=== PATIENT | male | born 1950 | race Caucasian/White ===

== ENCOUNTER → 2024-07-15 13:50 | Outpatient (REF) | payer MEDICARE, OTHER, SELFPAY | LOC: RAD 13:50 | PROVIDERS: ATTENDING PHYSICIAN Internal Medicine Cardiovascular Disease; FAMILY PHYSICIAN Nurse Practitioner Family | DX: I65.23 Occlusion and stenosis of bilateral carotid arteries (principal) | CPT/HCPCS: 93880 ==

== ENCOUNTER 2024-07-24 15:07 | Observation (INO) | payer MEDICARE, OTHER, SELFPAY ==
[2024-07-24] VITALS (15 sets, daily range): BP systolic 117–169; BP diastolic 60–88; PULSE 56–58; BMI 25.7; BMI 35.8
--- NOTE | 2024-07-24 10:02 | ED.GENMED ---
ED Provider Triage
<Bang Waters PA-C - Last Filed: 07/24/24 10:03>
-
Patient seen by provider in Triage?: Seen in Triage
74-year-old male with history of hypertension hyperlipidemia and hypothyroidism presents with worsening cough and shortness of breath. Had recent long flight to [place]. He has some discomfort between his shoulder blades. He has been having sinus
congestion for some time. Outpatient x-rays were done routinely about 3 weeks ago which were negative. He is in no obvious respiratory distress upon triage. He is ambulating with a steady gait.
Given recent flight will order labs EKG troponin BNP as well as PE study of chest. He would warrant further evaluation.
History of Present Illness
<Bang Waters PA-C - Last Filed: 07/24/24 10:03>
General
Chief Complaint: Breathing Problem
Time Seen by Provider: 07/24/24 11:51
<Dallas Mandel PA-C - Last Filed: 07/25/24 11:40>
General
Source: patient
History of Present Illness
History of Present Illness:
74-year-old male with past medical history of hypertension, hyperlipidemia, previous oropharyngeal cancer and kidney cancer presenting to the emergency department at request of primary care provider for evaluation of gradually worsening shortness of
breath and exertional dyspnea that patient reports has been ongoing since mid-to-late May, recently returned from a 15-day trip to [place] but had been having the symptoms prior to the vacation. Patient states that he can normally mow his half
acre lawn without any issues but now even walking up a flight of stairs is causing him to get very short of breath. He notes that over the course of the month and a half with the symptoms he has been near syncopal a few times as well and has had 1
day of vertiginous-like symptoms but this is fully resolved now. Patient denies any fevers, chills, rigors but does endorse a cough productive of a yellowish sputum. Patient completed a course of antibiotics a few weeks ago as well as an
expectorant but states this did not seem to help his symptoms.
Past History
<Bang Waters PA-C - Last Filed: 07/24/24 10:03>
Past History
ED Past Medical History: HTN, Hypercholesterolemia, Other (Tongue cancer) and Other (Polycythemia)
ED Past Surgical History: Orthopedic and Other (Surgery for his tongue cancer)
Social History
Personal:
Living: with family
<Dallas Mandel PA-C - Last Filed: 07/25/24 11:40>
Past History
ED Past Medical History: Cancer
Social History
Tobacco: Former smoker
Alcohol: None
Drug: None
Review of Systems
<Dallas Mandel PA-C - Last Filed: 07/25/24 11:40>
Review of Systems
All Other Systems: ROS reviewed and negative except as documented in HPI and ROS
Phy Exam
<Dallas Mandel PA-C - Last Filed: 07/25/24 11:40>
Physical Exam
Physical Exam:
GENERAL: Alert , in no apparent distress
EYE: conjunctiva clear
NECK: Supple
ENT: o/p clr, mmm.
CARDIAC: Regular rate and rhythm, faint systolic murmur left sternal border
LUNGS: Clear breath sounds bilaterally, no acute respiratory distress, no wheezes/rales/rhonchi
NEUROLOGICAL: Alert and oriented
SKIN: Warm and dry, skin intact.
MUSCULOSKELETAL: well perfused. No edema
PSYCH: Normal and appropriate interaction.
Scores
<Dallas Mandel PA-C - Last Filed: 07/25/24 11:40>
Heart Failure Risk
Heart Failure Risk Score: Not Applicable
Heart Score for Chest Pain Patients
STEMI patient?: Not applicable
Withdrawal Assessment of Alcohol
Withdrawal Assessment Completed?: Not applicable
Course
<Bang Waters PA-C - Last Filed: 07/24/24 10:03>
Orders/Labs/Results
Orders:
Orders
07/24/24 09:59
Electrocardiogram (*1) Urgent
Reason for Study: Shortness of Breath
EKG- Treatment ONCE
07/24/24 10:01
CT Chest Pe Study Urgent
Comment:
Reason For Exam: sob,long plane ride
07/24/24 10:12
Complete Blood Count/With Diff Urgent
Comprehensive Metabolic Panel Urgent
Folate Urgent
Comment: ADD ON
NT-proBNP Urgent
TSH Reflex To Free T4 Urgent
Comment: ADD ON
Troponin I Urgent
Vitamin B12 Urgent
Comment: ADD ON
07/24/24 14:47
Add On- LAB Urgent
Tests Added?: b12, folate,tshwith free t4 reflex
07/24/24 14:54
Meclizine [Antivert] 25 mg PO NOW STA
07/24/24 14:55
Admit/Transfer Patient As Directed
Co-Sign Provider:
Level of Care: Observation services
Assign to:: Telemetry
Physician / Group: sis bee
Diagnosis: acute vertigo, cerrato poss viral pneumonitis
Reason for Telemetry: Arrhythmia
Date to Stop Telemetry: 07/27/24
Time to Stop Telemetry: 11:00
Reason for Hospitalization: acute vertigo, cerrato poss viral pneumonitis
07/24/24 14:56
Code Status As Directed
Resuscitation Status: Full Code
07/24/24 14:59
PRN Pain Medication Management As Directed
May give lesser potent ordered pain med per pt: Yes
preference::
Protocol:: Medication orders for pain may be administered in a
manner that supports deferring to patient preference
when the pt is:
- Requesting an ordered lesser potent pain medication.
Least to most potent pain medications are defined
as: acetaminophen < NSAID < tramadol < opioids
(morphine, oxycodone, hydromorphone).
- Requesting a lesser dose of the same medication IF
ORDERED.
- Requesting a less intrusive route of administration
if both routes are prescribed by the provider (PO <
IV).
07/24/24 Dinner
Regular
At Your Request: Full Participation
Does patient need a safe tray?: No
Prednisone [Deltasone] 40 mg PO DAILY
07/24/24 15:38
COVID-19 Antigen Urgent
Source: Nasal Swab
Influenza A+B Rapid Molecular Urgent
[facility] Source: Nasal Swab
Specimen Description:
07/24/24 19:24
0.9% Sodium Chloride [Nss (Preservative Free)] See Protocol IV PRN PRN
Acetaminophen [Tylenol] 650 mg PO Q4HPRN PRN
FOLic ACID [Folvite] 1 mg 0.9% Sodium Chloride 50 ml [Nss] 50 ml IV DAILYPRN
Ipratropium/Albuterol Sulfate [Duoneb] 3 ml INH R Q4HPRN PRN
Lorazepam [Ativan] 1 mg IV Q1HPRN PRN
Lorazepam [Ativan] 1 mg PO Q2HPRN PRN
Lorazepam [Ativan] 2 mg IV Q1HPRN PRN
Thiamine Injection 200 mg IV Q8
07/24/24 19:24
Case Management Consult Once
Case Management Consult: Other
Comment: Substance abuse counseling
DIETARY CONSULT Routine
Reason for Consult: Nutrition support, possible refeeding guidelines
Activity As Directed
Activity Level: As Tolerated
MSAS SCORE As Directed
MSAS Score 0-4: Repeat MSAS every 2 hours until 0-4 for three consecutive assessments, then every 4 hours x 48
hours.
MSAS Score 5-7: For MILD withdrawl symptoms. Repeat MSAS and RASS every 2 hours
MSAS Score 8-11: For MODERATE withdrawal symptoms. Repeat MSAS and RASS every 1 hour. Consider ICU or IMU
level of care.
MSAS Score > 11: For SEVERE withdrawal symptoms. Repeat MSAS and RASS every 1 hour. Notify provider, consider
ICU level of care.
MSAS Additional Instructions: If no improvement or no decrease in score from severe to moderate within 12
hours, consult psychiatry
MSAS Notify Provider: Notify provider if patient requires more than 10 mg of Lorazepam in eight hour period.
Pneumatic Compression Sleeves As Directed
Type: Knee high
Vital Signs As Directed
Frequency: Per unit guidelines
Pulse Ox/spot Check [RESP] Routine
Quantity: 1
Pt Eval And Treat Routine
Treatment: Vestibular therapy
Activity Level: With Assistance
DX Deep Vein Thrombosis Video Routine
07/24/24 21:46
Alcohol Urgent
B-Hydroxybutyrate Urgent
GGTP Urgent
PTT Urgent
Phosphorus Urgent
Prothrombin Time Urgent
Urinalysis Routine
Date Specimen was Collected: 07/24/24
Time Specimen was Collected: 19:26
Urine Drug Abuse Screen Routine
Date Specimen was Collected: 07/24/24
Time Specimen was Collected: 19:26
07/24/24 22:00
Allopurinol [Zyloprim] 300 mg PO HS
Atorvastatin [Lipitor] 80 mg PO HS
diphenhydramine-acetaminophen [Tylenol PM Extra Strength] 2 tablet PO HS
07/24/24 23:00
Meclizine [Antivert] 25 mg PO Q8H PRN
07/25/24 06:00
Levothyroxine [Synthroid] 75 mcg PO DAILY @ 0600
07/25/24 07:20
Complete Blood Count/With Diff IN AM
Comprehensive Metabolic Panel IN AM
Magnesium IN AM
07/25/24 08:00
FOLic ACID [Folvite] 1 mg PO DAILY
Lisinopril [Zestril] 10 mg PO DAILY
07/27/24 11:00
DC Protocol for Telemetry ONCE
07/27/24 20:00
Thiamine HCl [Vitamin B1] 100 mg PO BID
Abnormal Lab Results
07/24/24
10:12
MCV 95.7 H fL
(80.0-94.0)
MCH 32.5 H pg
(27.0-31.0)
Monocytes % 9.5 H %
(1.7-9.3)
Carbon Dioxide 34 H mmol/L
(22-30)
07/24/24 10:12
07/24/24 10:12
Vital Signs
Initial and Last Documented VS:
Initial Vital Signs
Temp Pulse Resp BP Pulse Ox
98.4 F 50 18 152/85 100
07/24/24 09:54 07/24/24 09:54 07/24/24 09:54 07/24/24 09:54 07/24/24 09:54
Last Documented Vital Signs
Temp Pulse Resp BP Pulse Ox
98.1 F 53 18 139/73 96
07/25/24 11:10 07/25/24 11:10 07/25/24 11:10 07/25/24 11:10 07/25/24 11:10
<Dallas Mandel PA-C - Last Filed: 07/25/24 11:40>
Orders/Labs/Results
Orders:
Orders
07/24/24 09:59
Electrocardiogram (*1) Urgent
Reason for Study: Shortness of Breath
EKG- Treatment ONCE
07/24/24 10:01
CT Chest Pe Study Urgent
Comment:
Reason For Exam: sob,long plane ride
07/24/24 10:12
Complete Blood Count/With Diff Urgent
Comprehensive Metabolic Panel Urgent
Folate Urgent
Comment: ADD ON
NT-proBNP Urgent
TSH Reflex To Free T4 Urgent
Comment: ADD ON
Troponin I Urgent
Vitamin B12 Urgent
Comment: ADD ON
07/24/24 14:47
Add On- LAB Urgent
Tests Added?: b12, folate,tshwith free t4 reflex
07/24/24 14:54
Meclizine [Antivert] 25 mg PO NOW STA
07/24/24 14:55
Admit/Transfer Patient As Directed
Co-Sign Provider:
Level of Care: Observation services
Assign to:: Telemetry
Physician / Group: sis bee
Diagnosis: acute vertigo, cerrato poss viral pneumonitis
Reason for Telemetry: Arrhythmia
Date to Stop Telemetry: 07/27/24
Time to Stop Telemetry: 11:00
Reason for Hospitalization: acute vertigo, cerrato poss viral pneumonitis
07/24/24 14:56
Code Status As Directed
Resuscitation Status: Full Code
07/24/24 14:59
PRN Pain Medication Management As Directed
May give lesser potent ordered pain med per pt: Yes
preference::
Protocol:: Medication orders for pain may be administered in a
manner that supports deferring to patient preference
when the pt is:
- Requesting an ordered lesser potent pain medication.
Least to most potent pain medications are defined
as: acetaminophen < NSAID < tramadol < opioids
(morphine, oxycodone, hydromorphone).
- Requesting a lesser dose of the same medication IF
ORDERED.
- Requesting a less intrusive route of administration
if both routes are prescribed by the provider (PO <
IV).
07/24/24 Dinner
Regular
At Your Request: Full Participation
Does patient need a safe tray?: No
Prednisone [Deltasone] 40 mg PO DAILY
07/24/24 15:38
COVID-19 Antigen Urgent
Source: Nasal Swab
Influenza A+B Rapid Molecular Urgent
[facility] Source: Nasal Swab
Specimen Description:
07/24/24 19:24
0.9% Sodium Chloride [Nss (Preservative Free)] See Protocol IV PRN PRN
Acetaminophen [Tylenol] 650 mg PO Q4HPRN PRN
FOLic ACID [Folvite] 1 mg 0.9% Sodium Chloride 50 ml [Nss] 50 ml IV DAILYPRN
Ipratropium/Albuterol Sulfate [Duoneb] 3 ml INH R Q4HPRN PRN
Lorazepam [Ativan] 1 mg IV Q1HPRN PRN
Lorazepam [Ativan] 1 mg PO Q2HPRN PRN
Lorazepam [Ativan] 2 mg IV Q1HPRN PRN
Thiamine Injection 200 mg IV Q8
07/24/24 19:24
Case Management Consult Once
Case Management Consult: Other
Comment: Substance abuse counseling
DIETARY CONSULT Routine
Reason for Consult: Nutrition support, possible refeeding guidelines
Activity As Directed
Activity Level: As Tolerated
MSAS SCORE As Directed
MSAS Score 0-4: Repeat MSAS every 2 hours until 0-4 for three consecutive assessments, then every 4 hours x 48
hours.
MSAS Score 5-7: For MILD withdrawl symptoms. Repeat MSAS and RASS every 2 hours
MSAS Score 8-11: For MODERATE withdrawal symptoms. Repeat MSAS and RASS every 1 hour. Consider ICU or IMU
level of care.
MSAS Score > 11: For SEVERE withdrawal symptoms. Repeat MSAS and RASS every 1 hour. Notify provider, consider
ICU level of care.
MSAS Additional Instructions: If no improvement or no decrease in score from severe to moderate within 12
hours, consult psychiatry
MSAS Notify Provider: Notify provider if patient requires more than 10 mg of Lorazepam in eight hour period.
Pneumatic Compression Sleeves As Directed
Type: Knee high
Vital Signs As Directed
Frequency: Per unit guidelines
Pulse Ox/spot Check [RESP] Routine
Quantity: 1
Pt Eval And Treat Routine
Treatment: Vestibular therapy
Activity Level: With Assistance
DX Deep Vein Thrombosis Video Routine
07/24/24 21:46
Alcohol Urgent
B-Hydroxybutyrate Urgent
GGTP Urgent
PTT Urgent
Phosphorus Urgent
Prothrombin Time Urgent
Urinalysis Routine
Date Specimen was Collected: 07/24/24
Time Specimen was Collected: 19:26
Urine Drug Abuse Screen Routine
Date Specimen was Collected: 07/24/24
Time Specimen was Collected: 19:26
07/24/24 22:00
Allopurinol [Zyloprim] 300 mg PO HS
Atorvastatin [Lipitor] 80 mg PO HS
diphenhydramine-acetaminophen [Tylenol PM Extra Strength] 2 tablet PO HS
07/24/24 23:00
Meclizine [Antivert] 25 mg PO Q8H PRN
07/25/24 06:00
Levothyroxine [Synthroid] 75 mcg PO DAILY @ 0600
07/25/24 07:20
Complete Blood Count/With Diff IN AM
Comprehensive Metabolic Panel IN AM
Magnesium IN AM
07/25/24 08:00
FOLic ACID [Folvite] 1 mg PO DAILY
Lisinopril [Zestril] 10 mg PO DAILY
07/27/24 11:00
DC Protocol for Telemetry ONCE
07/27/24 20:00
Thiamine HCl [Vitamin B1] 100 mg PO BID
Abnormal Lab Results
07/24/24
10:12
MCV 95.7 H fL
(80.0-94.0)
MCH 32.5 H pg
(27.0-31.0)
Monocytes % 9.5 H %
(1.7-9.3)
Carbon Dioxide 34 H mmol/L
(22-30)
07/24/24 10:12
07/24/24 10:12
Vital Signs
Initial and Last Documented VS:
Initial Vital Signs
Temp Pulse Resp BP Pulse Ox
98.4 F 50 18 152/85 100
07/24/24 09:54 07/24/24 09:54 07/24/24 09:54 07/24/24 09:54 07/24/24 09:54
Last Documented Vital Signs
Temp Pulse Resp BP Pulse Ox
98.1 F 53 18 139/73 96
07/25/24 11:10 07/25/24 11:10 07/25/24 11:10 07/25/24 11:10 07/25/24 11:10
<Dallas Mandel PA-C - Last Filed: 07/25/24 11:40>
MDM/Problems Addressed
Differential Diagnosis Includes:
Pneumonia or other infectious etiology thought to be less likely given the chronicity of patient's symptoms, CHF, CAD, valvular dysfunction
MDM/Problems Addressed:
74-year-old male presenting the emergency department at request of primary care provider for evaluation of gradually worsening exertional dyspnea over the last month and a half, unchanged today but primary care provider was concerned for possible PE
given recent travel abroad. Patient was having symptoms prior to his trip thus making PE a little less likely but patient does also have risk factor with cancer history. Labs and CTA imaging ordered. Disposition pending
<Dallas Mandel PA-C - Last Filed: 07/25/24 11:40>
*Radiology
Radiology exam reviewed: radiology read reviewed
*Pulse Oximetry
Patient hypoxic: no
*EKG
Interpreted by ED Provider?: Yes
Heart Rate: 53
Rate: bradycardiac
Rhythm: sinus
[place]: normal axis
Ischemia: no ischemia
*Corrective And Manual Arts Therapist Interpretation
Rate: normal
Rhythm: sinus
*Critical Care Note
Total Time (30-74mins, 75-104mins- exclusive of procedures): Not Applicable
Data Reviewed
Review of Other/Old Records Reveals: Labs and Records
<Dallas Mandel PA-C - Last Filed: 07/25/24 11:40>
Comment
Comment:
Patient had a stress echocardiogram in 2020 which was inconclusive. Otherwise most recent echocardiogram was in 2018 and did not show any acute abnormalities
Patient Management
Discussion with other providers: Hospitalist and PCP
Escalation/DeEscalation of care consider admission/obs:
Hospitalist team accepts for continued evaluation and treatment of worsening exertional dyspnea. Primary care provider was also updated on findings
ED Attending Note
<Bang Waters PA-C - Last Filed: 07/24/24 10:03>
-
Portions of this chart may have been created with voice recognition software.� Occasional wrong word or��sound alike� substitutions may have occurred due to the inherent limitations of voice recognition software.
Discharge Plan
Departure
Patient Disposition: Admit
Date of Disposition: 07/24/24
Time of Disposition: 13:35
Presentation/result/management discussed w/ accepting MD/DO: Hospitalist
Discharge Problem:
Exertional dyspnea, Near syncope
Interventions
Interventions:
*Risk Screen - Suicide Last Done: 07/24/24 09:58
*General Assessment Last Done: 07/24/24 09:58
*Neglect/Abuse Screening Last Done: 07/24/24 09:58
*ED COVID-19 Vaccine History Last Done: 07/24/24 22:36
*Nursing Disposition Last Done: 07/24/24 22:39
ED- Cardiac Assessment Last Done: 07/24/24 11:54
ED- Pulmonary Assessment Last Done: 07/24/24 11:54
Discharge Date and Time
Discharge Date/Time: 07/24/24 22:39
[2024-07-24 10:53] LABS: % Basophils 0.8 % (0-2); % Eosinophils 3.5 % (0-6); % Immature Granulocytes 0.3 % (0-0.5); % Lymphocytes 26.4 % (20.5-51.1); % Monocytes 9.5 % (1.7-9.3); % Neutrophils 59.5 % (42.2-75.2); Absolute Basophils 0.1 10^3/uL (0-0.2); Absolute Eosinophils 0.2 10^3/uL (0-0.7); Absolute Lymphocytes 1.7 10^3/uL (1.2-3.4); Absolute Monocytes 0.6 10^3/uL (0.1-0.6); Absolute Neutrophils 3.9 10^3/uL (1.4-6.5); Hematocrit 48.9 % (39.0-52.0); Hemoglobin 16.6 g/dL (13.0-18.0); Mean Corp Hgb Conc. 33.9 g/dL (33.0-37.0); Mean Corpuscular Hgb 32.5 pg (27.0-31.0); Mean Corpuscular Volume 95.7 fL (80.0-94.0); Mean Platelet Volume 9.4 fL (7.4-10.4); Nucleated Red Blood Cells % 0 % (-); Platelet Count 156 10^3/uL (130-400); Red Blood Cell Count 5.11 10^6/uL (4.70-6.10); Red Cell Dist. Width 13.7 % (11.5-14.5); White Blood Cell Count 6.5 10^3/uL (4.8-10.8)
[2024-07-24 10:56] LABS: Blood Urea Nitrogen 14 mg/dl (9-20); Glucose 92 mg/dl (70-99); eGFR > 60.00
[2024-07-24 10:57] LABS: ALT (SGPT) 21 U/L (0-50); AST (SGOT) 25 U/L (17-59); Albumin 4.4 g/dl (3.5-5.0); Alkaline Phosphatase 53 U/L (38-126); Calcium 9.9 mg/dl (8.4-10.2); Carbon Dioxide 34 mmol/L (22-30); Chloride 100 mmol/L (98-107); Potassium 4.3 mmol/L (3.5-5.1); Sodium 142 mmol/L (135-145); Total Bilirubin 1.3 mg/dl (0.2-1.3); Total Protein 6.9 g/dl (6.3-8.2)
[2024-07-24 11:03] LABS: NT-proBNP 238 pg/ml; Troponin I < 0.012 ng/ml
--- NOTE | 2024-07-24 13:43 | HPS.HSE ---
Family Physician
-
Family Physician: LIDIA Patiño
Chief Complaint
-
Cough, dizziness, dyspnea on exertion
History of Present Illness
74-year-old male who reports a chronic clear cough only in the a.m. starting May 21. He reports he went on vacation from June 04 to the flew from [place] to [place] 9 hours then to [facility] for half hours then a ferry to [place]. He flew
home on June 19 and states during his vacation he had tons of nasal congestion blowing his nose, coughing the entire time. He was seen by his PCP and placed on 5-day course of Augmentin. He states approximately 1 week ago while here for an
outpatient carotid ultrasound he walked out and felt like he was going to pass out. He states when standing he felt like it was being pulled to the left side and felt like a spinning sensation. He reports he was able to make it to his car then the
emergency room waiting area where he sat down until he felt better. He then decided to go home instead of get checked out. He reports over this past week every time he goes from lying to sitting or standing position he feels a sense of
overwhelming lightheadedness with possibly vertigo sensation. He also has some dizziness with different head positions. He reports his cough turned into difficulty taking a deep breath. On my exam he does have poor inspiratory effort. He reports
night sweats several times over the past month and no weight loss. He denies any fever, chills, headache, chest pain, palpitations, abdominal pain, nausea, vomiting, diarrhea, urinary symptoms. He has past medical history of Alcohol abuse drinks 6
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
nephrectomy September 2013 at [facility], Pancreatic cysts on 2019 MRI
Medical History
Past Medical History
Past Medical History: Reports Other
Additional Past Medical History:
Alcohol abuse drinks 6 beers daily or 4 glasses of wine daily
HTN�benign
HLD
Hx hypothyroidism
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
Hx History of renal cell carcinoma with right partial nephrectomy September 2013 at [facility]
hx Pancreatic cysts on 2019 MRI
Hx tongue malignancy
Hx polycythemia vera
Hx gout
Hx SVT
Past Surgical History: Reports Other
Additional Past Surgical History:
Head and neck resection due to tongue malignancy August 2011
Right partial nephrectomy September 2013 secondary to renal carcinoma
Hernia repair July 2015
Left rotator cuff repair
Social History
Tobacco: Non-smoker
Alcohol: Daily (6 beers daily or 4 glasses of wine)
Personal:
Living: With Family
Employment: Retired
Family History
Family History: Other (Father CAD/CABG x 4 vessel colon CA age 82, mother pancreatic cancer age 79)
Allergies / Home Medications
Allergies reflects when Allergies were last updated in [employer].
Home Medications with original date entered in [employer]
Allergy/Medication List:
Allergies
Allergy/AdvReac Type Severity Reaction Status Date / Time
Sulfa (Sulfonamide Allergy Hives Verified 07/24/24 09:58
Antibiotics)
Home Medications
atorvastatin 80 mg tablet 80 mg PO HS 08/07/14
lisinopril 10 mg tablet 10 mg PO DAILY 09/04/20
allopurinol 300 mg tablet 300 mg PO HS 07/24/24
diphenhydramine 25 mg-acetaminophen 500 mg tablet (Tylenol PM Extra Strength) 2 tab PO HS 07/24/24
levothyroxine 75 mcg tablet 75 mcg PO DAILY 07/24/24
lorazepam 0.5 mg tablet 0.5 mg PO DAILYPRN PRN before MRI/flight 07/24/24
Review of Systems
-
Constitutional: Reports Night Sweats (2-3 episodes in the last month); Denies Fever or Fatigue
EENT: Denies Sore Throat
Respiratory: Reports Cough (Clear in color in a.m.) and Trouble Breathing (Poor inspiratory effort and MORFIN x 1 week)
Cardiac: Denies Chest Pain, Diaphoresis, Palpitations or Syncope
Abdomen/GI: Denies Abdominal Pain, Nausea, Vomiting, Diarrhea, Constipated, Bloody Stools or Black Stools
: Denies Dysuria, Frequency, Flank Pain, Incontinence or Urgency
Musculoskeletal: Denies Joint Pain or Edema
Skin: Denies Itching or Rash
Neurological: Reports Dizzy (With position changes); Denies Headache or Weakness
Endocrine: Reports No Symptoms
Hematologic/Lymphatic: Reports No Symptoms
Psych: Reports Calm
Physical Exam
Vital Signs
Vital Signs
Temp Pulse Resp BP Pulse Ox
98.4 F 51 12 159/82 100
07/24/24 09:54 07/24/24 11:30 07/24/24 11:30 07/24/24 11:18 07/24/24 09:54
Physical Exam
General: Comfortable and Conversant; No Pain, Fever or Chills
HEENT: NormoCephalic, Anicteric, Moist mucous membranes, PERRLA, [place] Conjunctivae, No Ptosis and Other (Dizziness reported with changes in position of head and with lying to sitting position)
Respiratory: Other (Poor inspiratory effort); No Wheezes, Rales or Rhonchi
Cardiac: S1/S2 and Bradycardia (Sinus); No Murmur, Rub, Gallop or Peripheral Edema
Breast: Deferred by me
GI: Soft, Non Tender, Non Distended, Normal Bowel Sounds and No Hepatosplenomegaly
Rectal: Deferred by Provider
Genito-urinary: Deferred by me
Musculoskeletal: No Clubbing, No Cyanosis and No Edema
Skin: Warm and Dry; No Rash or Jaundice
Neuro: AO x 3, No Motor Deficits, Nonfocal/grossly intact, Cranial Nerves Intact and No Sensory Deficits; No Slurred Speech, Facial Droop or Tremors
Psych: Calm
Laboratory Results
-
07/24/24 10:12
07/24/24 10:12
Laboratory Results
Total Bilirubin 1.3 mg/dl (0.2-1.3) 07/24/24 10:12
AST 25 U/L (17-59) 07/24/24 10:12
ALT 21 U/L (0-50) 07/24/24 10:12
Alkaline Phosphatase 53 U/L (38-126) 07/24/24 10:12
Troponin I < 0.012 ng/ml 07/24/24 10:12
Data Reviewed
-
CT Scan: Report Reviewed by me
Lab Data: Labs Reviewed by me
Impression/Plan
-
Impression/plan:
Observation telemetry
#Acute Vertigo preceded by sinus infection/URI
-Treated for URI with sinus infection June 21 completed 5-day course of Augmentin
-Consult PT for Vestibular therapy
-Prednisone 40 mg X 5 days
-Meclizine 25 mg 3 times daily as needed
#Dyspnea on exertion possibly secondary to Viral Pneumonitis
-No current fever would hold on antibiotics
-Check influenza, COVID swab
-Will give course of prednisone 40 mg x 5 days
-DuoNebs as needed
CT PE study: 1. No CTA evidence for an acute pulmonary thromboembolism.
2. Bilateral lower lobe subsegmental atelectasis with groundglass opacities that are favored to be hypoventilatory, although a mild pneumonitis could also be considered in the appropriate clinical setting.
3. 8 mm solid pulmonary nodule in the left lower lobe. Recommend a follow-up chest CT in 6-12 months per Fleischner Society guidelines.
# Incidental 8 mm solid pulmonary nodule in the left lower lobe
-Radiology recommends a follow-up chest CT in 6-12 months
#Alcohol abuse
#Alcohol abuse drinks 6 beers daily or 4 glasses of wine daily
Last drink 3 days ago 07/21/2024
-Will check B12, folate
-MSAs screen with protocol
#HTN�benign
-Continue lisinopril 10 mg daily
Lying 150/78, HR 58
Sitting 150/88 HR 56 symptomatic with dizziness
Standing 138/88 heart rate 58
#HLD
-Continue atorvastatin 80 mg every afternoon
#Hx Hypothyroidism
-Continue levothyroxine 75 mcg daily
#Hx History of renal cell carcinoma with right partial nephrectomy September 2013 at [facility]
Creat 0.9
#Hx tongue malignancy
Head and neck resection due to tongue malignancy August 2011
#Hx polycythemia vera
RBC 5.11 within normal limits
#Hx SVT
Stress echo 05/20/2021: EF 67% good exercise tolerance 9 minutes no CP or ischemic changes
2D echo 02/05/2018: EF 55-60% no valvular disorders no wall abnormality
#HX Pancreatic cysts on 2019 MRI
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
#Hx gout
-Continue allopurinol 300 mg at bedtime
DVT prophylaxis
SCDs
Full code
--- NOTE | 2024-07-24 14:57 | W.PN.UPDATE ---
Addendum entered and electronically signed by Viola Correa MD 07/24/24 22:02:
Pulmonary also consulted.
Addendum entered and electronically signed by Viola Correa MD 07/24/24 17:02:
Patient in sinus bradycardia heart rate as low as 30s with sinus pauses. Concerned that this could be the source of his dizziness/vertigo. Cardiology to be consulted.
Addendum entered and electronically signed by Viola Correa MD 07/24/24 14:58:
Patient with significant alcohol use. Alcohol withdrawal protocol, check TSH and B12.
Original Note:
Update Note
Progress Note Update
This is an addendum to the H&P written by Constance Ambriz on 07/24/2024. Patient seen and examined independently with ADOPTION COUNSELOR.
74-year-old male past medical history of alcohol use, hypertension, hyperlipidemia, hypothyroidism, tongue cancer, polycythemia vera, gout, SVT, presenting for worsening cough, dyspnea on exertion, sinus congestion with discomfort between shoulder
blades after recent long flight to [place]. Given 5 days of Augmentin for URI on June 21 with persistent symptoms since then.
He has been having lightheadedness upon standing feeling a pulling to the left. Occasional night sweats.
CT PE showed bilateral lower lobe segment segmental atelectasis groundglass opacities are favored to be hypoventilatory however mild pneumonitis could also be considered. Also 8 mm solid pulmonary nodule.
On examination he has bilateral decreased air entry, occasion crackle. Presentation not consistent with bacterial pneumonia. May have interstitial pneumonitis. Start prednisone 40 mg, DuoNebs as needed. Check COVID and influenza.
Orthostatic vital signs negative. Dizziness possibly secondary to vestibular neuritis. As needed meclizine, PT for vestibular therapy, steroids may help with this as well.
[2024-07-24] MEDS: DELTASONE 40 MG PO (15:04)
[2024-07-24] MEDS: ANTIVERT 25 MG PO (15:04)
[2024-07-24 15:55] LABS: TSH Reflex To Free T4 3.38 uIU/ml (0.47-4.68)
[2024-07-24 16:19] LABS: COVID-19 Antigen Negative (Negative)
--- NOTE | 2024-07-24 17:41 | CON.CAR ---
Addendum entered and electronically signed by Nik Sloan MD 07/24/24 18:04:
I saw and examined the patient.
The DIRECTOR RECORDS MANAGEMENT's note was reviewed and I agree with the note.
Comment: Mr. Stout has a long history of asymptomatic sinus bradycardia. He comes to the hospital with weeks of cough and dyspnea on exertion. He tells me that prior chest imaging showed some lung disease at the bases and he saw disintegrator operator
at that time. In April 2021 he had a treadmill stress test. He exercised well to 10 METS with heart rate reaching only 67% of maximum predicted heart rate. While he had chronotropic incompetence it did not affect his exercise capacity and a
pacemaker was not needed then.
If his respiratory status allows I would like to repeat a treadmill stress test to look at his heart rate response to exercise in combination with his exercise tolerance and compared to the study from April 2021.
If you were not having any acute respiratory process now it would be possible to believe that he is now symptomatic from chronotropic incompetence and would benefit from pacemaker therapy for sinus node dysfunction.
We have seen sinus node dysfunction in the emergency room with resting sinus bradycardia, very short sinus pauses not more than 2 seconds sinus bradycardia into the 30s with junctional escape rhythm. None of these rhythms have been symptomatic in
the emergency room.
I do not believe his orthostatic lightheadedness over that single episode where things seem tilted will improve with pacemaker therapy.
Will update an echocardiogram. If his respiratory status permits and he is felt to be in good enough shape we will try obtaining a treadmill stress test tomorrow.
Pacing for chronotropic incompetence is an elective process and certainly could be deferred until his acute respiratory status is further evaluated and treated.
-
-
Original Note:
Consultation
Consultation Request
Date/Time Consultation Requested: 07/24/241699
Date/Time Consultation Performed: 07/24/241709
Requesting Provider: Constance Ambriz NP
Performing Provider: Kristine MURILLO for
Reason for Consultation: Bradycardia
Medical History
-
Chief Complaint: SOB
History of Present Illness:
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
resection who is here for evaluation of SOB. Briefly, he has been feeling off for about 8 weeks after returning from a trip. He started with feeling like he had a cold. Then, he was on antibiotics as an outpatient to help with a cough and
congestion. Those symptoms improved. However, he continues to have MORFIN. There is no CP. He has back pain, which is worse with certain positions and with deep breath- he wonders if it is related to all the coughing he did (musculoskeletal cause). He
has also had episodes of light-headedness, mostly with position change. However, last week, he laid down for a test for about 1/2 hour, then walked to his car and felt that he was walking sideways and felt light-headed like he may pass out. He did
not pass out. He has been fatigued. He is in no distress at the time of my assessment. We are consulted for bradycardia. I see HR's as low as 40 BPM and there is some junctional bradycardia. He is not dizzy in bed when these are happening.
Past Medical History
Past Medical History: CAD, Cancer, HTN, Hypercholesterolemia and Hypothyroidism
Social History
Personal:
Living: With Family
Family History
Family History: Reviewed & Not Pertinent
Allergies / Home Medications
Allergy/AdvReac Type Severity Reaction Status Date / Time
Sulfa (Sulfonamide Allergy Hives Verified 07/24/24 09:58
Antibiotics)
�Medication �Instructions �Recorded �Confirmed �Type
atorvastatin 80 mg tablet 80 mg PO HS 08/07/14 07/24/24 History
lisinopril 10 mg tablet 10 mg PO DAILY 09/04/20 07/24/24 History
allopurinol 300 mg tablet 300 mg PO HS 07/24/24 07/24/24 History
diphenhydramine 25 2 tab PO HS 07/24/24 07/24/24 History
mg-acetaminophen 500 mg tablet
(Tylenol PM Extra Strength)
levothyroxine 75 mcg tablet 75 mcg PO DAILY 07/24/24 07/24/24 History
lorazepam 0.5 mg tablet 0.5 mg PO DAILYPRN PRN before 07/24/24 07/24/24 History
MRI/flight
Review of Systems
-
History Source: Patient
All other systems: Negative unless noted
Constitutional: Fatigue
Respiratory: Trouble Breathing
Neurological: Dizzy
Physical Exam
Vital Signs
Temp Pulse Resp BP Pulse Ox
98.4 F 43 21 117/71 100
07/24/24 09:54 07/24/24 17:15 07/24/24 17:15 07/24/24 17:00 07/24/24 09:54
Lab Results
07/24/24 10:12
07/24/24 10:12
Troponin I < 0.012 ng/ml 07/24/24 10:12
Yxc-X-Djjrrsszotm Pept 238 pg/ml 07/24/24 10:12
Physical Exam
General: Well Developed, Well Nourished and No Apparent Distress
HEENT: Normocephalic and Anicteric
Respiratory: Clear and Non Labored Respirations
Cardiac: Regular Rhythm
Musculoskeletal: No Edema
Skin: Warm and Dry
Neuro: AO x 3
Psych: Calm
Impression / Plan
-
MORFIN:
-respiratory w/u per primary team. Steroids initiated.
-we will evaluate for cardiac cause with echo and treadmill stress test (eval for chronotropic incompetence)- see below. Treadmill stress test will be tomorrow pending reassessment in AM to make sure he is ready to do so.
Bradycardia:
-some periods of junctional bradycardia, but no advanced HB or long pauses seen
-follow telemetry
-known history of SB
-eval as above
-TSH is WNL
Light-headed feeling:
-monitor orthos, tele, echo. Eval for non-cardiac cause as well.
HTN:
-continue ACEI
-follow
Data Reviewed
-
EKG: Tracing Personally Visualized and interpreted (SB at [address]
CT Scan: Report Reviewed by me (no PE)
Medical Tests (Nuc Med, Echo etc): Report Reviewed by me (echo 01/26/2018: Normal left ventricular size and systolic function. Estimated ejection fraction is 55-60%. Aortic sclerosis without stenosis.)
Labs: Labs Reviewed by me
[2024-07-24 17:55] LABS: Folate 10.4 ng/ml (2.76-20); Vitamin B12 281 pg/ml (239-931)
[2024-07-24] MEDS: THIAMINE INJECTION 200 MG IV (20:04)
[2024-07-24 22:03] LABS: Urine Albumin Negative (Neg - Trace); Urine Bilirubin Negative (Negative); Urine Character Clear (Clear); Urine Color Yellow; Urine Glucose Negative (Negative); Urine Ketone Negative (Negative); Urine Leukocyte Negative (Negative); Urine Nitrite Negative (Negative); Urine Occult Blood Negative (Negative); Urine Urobilinogen Negative (Neg - 1+)
[2024-07-24 22:05] LABS: INR 0.91; PT 12.7 Sec (11.4-14.6)
[2024-07-24 22:06] LABS: APTT 27.9 Sec (23.4-35.0)
[2024-07-24 22:14] LABS: Amphetamines Negative (Negative); Barbiturates Negative (Negative); Benzodiazepines Negative (Negative)
[2024-07-24 22:15] LABS: Buprenorphine Negative (Negative); Cocaine Negative (Negative); Marijuana Negative (Negative); Methadone Negative (Negative); Methamphetamines Negative (Negative); Opiates Negative (Negative); Phencyclidine Negative (Negative); Tricyclic Antidepressants Negative (Negative)
[2024-07-24 22:24] LABS: GGTP 11 U/L (15-73); Phosphorus 2.9 mg/dl (2.5-4.5)
[2024-07-24 22:30] LABS: Alcohol None Detected
[2024-07-24 22:31] LABS: B-Hydroxybutyrate 0.06 mmol/L (0.02-0.27)
[2024-07-24] MEDS: LIPITOR 80 MG PO (23:00)
[2024-07-24] MEDS: ZYLOPRIM 300 MG PO (23:00)
[2024-07-24] MEDS: BENADRYL 50 MG PO (23:02)
[2024-07-24] MEDS: THIAMINE INJECTION IV (23:05)
--- NOTE | 2024-07-25 01:27 | PTCARENOTE ---
Rec'd pt. from ED into room 402-2 AAOx3, VSS, sinus karrie in the 50's Able to ambulate with steady gait, pt. encouraged to ring for assist due to previous vertigo symptoms (none so far since admit). Pt. very pleasant, MSAS score 0. Currently
sleeping.
[2024-07-25 03:41] VITALS: BP 131/85
[2024-07-25] MEDS: SYNTHROID 75 MCG PO (06:08)
[2024-07-25 07:25] VITALS: BP 145/79
--- NOTE | 2024-07-25 08:21 | W.PN.CD ---
Addendum entered and electronically signed by Neal Beal MD 07/25/24 15:21:
74 yo male with PMH of sinus bradycardia admitted with MORFIN, cough. Being treated for URI/bronchitis. We are consulted to evaluate if his sinus bradycardia is contributing to his MORFIN. There is no CP. Exam with karrie, regular rhythm, II/ systolic
murmur at RUSB. Echo: EF 60-65%, aortic sclerosis.
ETT today: he achieved 8 METS and max HR 99bpm. He is happy with how he felt on treadmill. While his peak HR was lower than expected, he had good exercise capacity. I do not see an indication for a PPM. He will follow up with us in the
outpatient setting.
Agree with continued treatment of his URI.
Original Note:
Today's Communication / Plan
-
Echo and stress today (see details below)
Follow tele
monitor orthos
Impression / Plan
-
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
adenocarcinoma treated with resection who is here for evaluation of MORFIN and cough. He hasn't felt right for about 8 weeks. There is fatigue. He has also had some light-headed episodes, some of which sound orthostatic with position change, and one
episode where he felt like he was walking sideways. We were consulted for bradycardia.
MORFIN:
-respiratory w/u per primary team. Steroids initiated. Per report, patient had prior chest imaging showed some lung disease at the bases and he saw dough cutting machine operator at that time. Pulmonary is consulted.
-we will evaluate for cardiac cause with echo and treadmill stress test (eval for chronotropic incompetence). I assessed patient this AM. His lungs are clear. Sats normal on RA. Tele stable, BP stable. He denies any dizziness. I feel that he is
safe for treadmill stress test today and he agrees and would like to proceed. I spoke with both he and the flight hostess regarding reasons to stop procedure.
Bradycardia:
-On monitor in ER he had evidence for sinus node dysfunction with resting sinus bradycardia and very short sinus pauses not more than 2 seconds sinus bradycardia into the 30s with junctional escape rhythm. None of these rhythms have been
symptomatic in the emergency room. Tele overnight unremarkable- SB continues to be seen, but no advanced HB or long pauses. Continue to follow telemetry.
-Treadmill stress test today to look at his heart rate response to exercise in combination with his exercise tolerance and compared to the study from April 2021. In April 2021 he had a treadmill stress test. He exercised well to 10 METS
with heart rate reaching only 67% of maximum predicted heart rate. While he had chronotropic incompetence it did not affect his exercise capacity and a pacemaker was not needed then.
-If he were not having any acute respiratory process now it would be possible to believe that he is now symptomatic from chronotropic incompetence and would benefit from pacemaker therapy for sinus node dysfunction.
Light-headed feeling:
-monitor orthos, tele, echo. Eval for non-cardiac cause as well.
HTN:
-continue ACEI
-follow
Physical Exam
Vital Signs/Labs
Vital Signs
Temp Pulse Resp BP Pulse Ox
97.6 F 53 20 131/85 95
07/25/24 03:41 07/25/24 03:41 07/25/24 03:41 07/25/24 03:41 07/25/24 03:41
07/24/24 07/25/24 07/26/24
06:59 06:59 06:59
Actual Weight 91.626 kg
PT 12.7 Sec (11.4-14.6) 07/24/24 21:46
INR 0.91 07/24/24 21:46
APTT 27.9 Sec (23.4-35.0) 07/24/24 21:46
07/24/24
10:12
Bgr-C-Aknvurvovxv Pept 238
LAB Results
07/24/24
10:12
Troponin I < 0.012
Physical Exam
Constitutional: No acute distress
EENT: Anicteric
Cardiovascular: Rhythm & rate is regular
Respiratory: Respiratory effort normal and Lungs clear to auscul.
Neuro/Psych: AO x 3
Data Reviewed
-
Date of Service: July 25, 2024
EKG: Other (SB)
[2024-07-25 08:49] LABS: % Basophils 0.2 % (0-2); % Eosinophils 0.5 % (0-6); % Immature Granulocytes 0.5 % (0-0.5); % Lymphocytes 22.2 % (20.5-51.1); % Monocytes 9.3 % (1.7-9.3); % Neutrophils 67.3 % (42.2-75.2); Absolute Lymphocytes 1.8 10^3/uL (1.2-3.4); Absolute Monocytes 0.8 10^3/uL (0.1-0.6); Absolute Neutrophils 5.5 10^3/uL (1.4-6.5); Hematocrit 46.6 % (39.0-52.0); Hemoglobin 15.6 g/dL (13.0-18.0); Mean Corp Hgb Conc. 33.5 g/dL (33.0-37.0); Mean Corpuscular Hgb 32.2 pg (27.0-31.0); Mean Corpuscular Volume 96.3 fL (80.0-94.0); Mean Platelet Volume 10.1 fL (7.4-10.4); Nucleated Red Blood Cells % 0 % (-); Platelet Count 152 10^3/uL (130-400); Red Blood Cell Count 4.84 10^6/uL (4.70-6.10); Red Cell Dist. Width 13.4 % (11.5-14.5); White Blood Cell Count 8.2 10^3/uL (4.8-10.8)
--- NOTE | 2024-07-25 09:21 | CON.PUL ---
Consultation
Consultation Request
Date/Time Consultation Requested: 07/25/2024-9 AM
Date/Time Consultation Performed: 07/25/2024-9:30 AM
Requesting Provider: Hospitalist
Performing Provider: Dr. Abraham
Reason for Consultation: Shortness of breath
Medical History
-
Chief Complaint: Shortness of breath
History of Present Illness:
74-year-old male with history of hypertension, hyperlipidemia, hypothyroidism, polycythemia vera, alcohol use disorder patient developed upper respiratory tract infection symptoms recently treated with antibiotics and presented with acute vertigo
and increased dyspnea-pulmonary was consulted for shortness of breath 07/25/2024. The patient states that his shortness of breath and respiratory symptoms have been going on for weeks treating the outpatient setting. He is placed on some steroids
and he feels actually much better. Continues to occasional yellow mucus production. Denies any chest pain, chest tightness or wheezing. He is not on any inhalers. He quit smoking 55 years ago. He is never told he had lung disease. Does not
complain of acid reflux, abdominal pain or weakness.
Past Medical History
Past Medical History: None (Hypertension. Hyperlipidemia. Hypothyroid. Alcohol use disorder. Renal cell carcinoma status post partial nephrectomy 2013-[facility]. Pancreatic cyst 2019. Tongue malignancy. Polycythemia vera. Gout. SVT. Left rotator
cuff repair. Hernia repair 2015.)
Social History
Tobacco: Former Smoker ( less than [id number] the day he left the service 55 years ago)
Alcohol: Daily (6 beers or 4 glasses of wine daily)
Drug: None
Personal:
Living: With Family
Occupational Exposures: No known asbestos exposure
Environmental Exposures: No known tuberculosis exposure
Family History
Family History: Reviewed & Not Pertinent and Other (Father-CAD and colon cancer. Mother pancreatic cancer.)
Allergies / Home Medications
Allergies
Allergy/AdvReac Type Severity Reaction Status Date / Time
Sulfa (Sulfonamide Allergy Hives Verified 07/24/24 09:58
Antibiotics)
Home Medications
�Medication �Instructions �Recorded �Confirmed �Last Taken �Type
atorvastatin 80 mg tablet 80 mg PO HS 08/07/14 07/24/24 07/23/24 History
lisinopril 10 mg tablet 10 mg PO DAILY 09/04/20 07/24/24 07/24/24 History
allopurinol 300 mg tablet 300 mg PO HS 07/24/24 07/24/24 07/23/24 History
diphenhydramine 25 2 tab PO HS 07/24/24 07/24/24 07/23/24 History
mg-acetaminophen 500 mg tablet
(Tylenol PM Extra Strength)
levothyroxine 75 mcg tablet 75 mcg PO DAILY 07/24/24 07/24/24 07/24/24 History
lorazepam 0.5 mg tablet 0.5 mg PO DAILYPRN PRN before 07/24/24 07/24/24 Unknown History
MRI/flight
Review of Systems
-
Unable to Obtain full review of systems at this time due to: Other (Per HPI)
Vitals / Labs / Diagnostic Testing
Vital Signs
Temp Pulse Resp BP Pulse Ox
97.5 F 52 18 145/79 94
07/25/24 07:25 07/25/24 07:25 07/25/24 07:25 07/25/24 07:25 07/25/24 07:25
Lab Data
07/25/24 07:20
Laboratory Results
07/24/24
21:46
PT 12.7
INR 0.91
APTT 27.9
Microbiology
07/24/24 15:38 Nasal Swab Influenza Types A & B (ANTHONY) - Final
Negative for Influenza A & B, NAAT
Negative results must be combined with clinical observations
and patient history.
Nucleic Acid Amplification test (NAAT)performed on the
[email or web address] platform.
Diagnostic Testing:
Physical Exam
-
Exam:
Well-nourished and well-developed in no apparent distress
HEENT-atraumatic, normocephalic
Neck-supple, no JVD, no bruit
Heart-regular rate and rhythm-no murmurs, rubs or gallops
Chest-clear to auscultation, no wheezes, Rare crackles at the bases
Back-no tenderness
Abdomen-soft, nontender, nondistended, no hepatosplenomegaly
Extremities-no cyanosis, clubbing, edema and good peripheral pulses
Integument-intact, no rashes, lesions or ecchymosis
Neurology-alert and oriented, nonfocal motor and sensory exam
Assessment
-
74-year-old male with history of hypertension, hyperlipidemia, hypothyroidism, polycythemia vera, alcohol use disorder patient developed upper respiratory tract infection symptoms 6 weeks ago treated with antibiotics and presented with acute
vertigo and increased dyspnea-pulmonary was consulted for shortness of breath 07/25/2024.
Acute vertigo
URI
Dyspnea
Pulmonary nodule-left lower lobe 8 mm incidental finding
Alcohol use disorder
Conditions present prior to admission:
Hypertension.
hyperlipidemia.
Hypothyroid.
Alcohol use disorder.
Renal cell carcinoma status post partial nephrectomy 2013-.
Pancreatic cyst 2018.
Tongue malignancy.
Polycythemia vera.
Gout.
SVT.
Left rotator cuff repair.
Hernia repair 2014.
Plan
.
History consistent with upper respiratory tract infection and bronchitis with prolonged cough.
Supplemental oxygen as needed.
Nebulizers if needed-currently not bronchospastic..
Mucolytic's
Prednisone initiated at 40 mg daily-patient states that he feels improvement from it.
Aspiration precautions/history of head and neck resection.
Speech therapy if aspiration suspected.
Check cultures.
Sputum culture ordered.
Doxycycline initiated to cover atypical pathogens..
Monitor for EtOH withdrawal-low risk.
Thiamine.
Alcohol withdrawal treatment if needed
DVT prophylaxis.
Nutrition
Early mobilization
Reviewed with at the bedside
In 6 months to follow-up on pulmonary nodule-needs CT chest in 6 months to follow-up on left lower lobe pulmonary nodule-we'll order outpatient PFT/6 minute walk test/follow-up CT chest
Diagnostic data:
Chest x-ray 03/27/2023-subsegmental atelectasis
CT chest 11/01/2019-small benign calcified granuloma right lung base partially calcified mediastinal lymph node
CT chest 07/24/24-no CT evidence for acute pulm embolism, bilateral lower lobe atelectasis, mild groundglass opacifications, hypoventilation versus mild pneumonitis, 8 mm solid nodule left lower lobe
Outpatient pulmonary follow-up
Echocardiogram 07/25/2024-EF 60-65%, aortic sclerosis without stenosis
Data Reviewed
-
EKG: Report reviewed by me
Radiology: Report reviewed by me
CT Scan: Report reviewed by me
Ultrasound: Report reviewed by me
MRI: Report reviewed by me
Labs: Labs reviewed by me
Old Records: Reviewed
Total Time Spent with Patient (in minutes): 55
[2024-07-25 09:25] LABS: ALT (SGPT) 16 U/L (0-50); AST (SGOT) 21 U/L (17-59); Alkaline Phosphatase 43 U/L (38-126); Blood Urea Nitrogen 11 mg/dl (9-20); Calcium 9.6 mg/dl (8.4-10.2); Carbon Dioxide 30 mmol/L (22-30); Chloride 103 mmol/L (98-107); Estimated Creatinine Clearance 80 ml/min; Glucose 86 mg/dl (70-99); Potassium 4.1 mmol/L (3.5-5.1); Sodium 142 mmol/L (135-145); Total Bilirubin 1.3 mg/dl (0.2-1.3); Total Protein 6.3 g/dl (6.3-8.2); eGFR > 60.00
[2024-07-25] MEDS: ZESTRIL 10 MG PO (09:42)
[2024-07-25] MEDS: DELTASONE 40 MG PO (09:42)
[2024-07-25] MEDS: FOLVITE 1 MG PO (09:42)
[2024-07-25] MEDS: THIAMINE INJECTION 200 MG IV (09:42)
[2024-07-25 11:10] VITALS: BP 139/73
[2024-07-25] MEDS: VIBRAMYCIN 100 MG PO (11:14)
[2024-07-25] MEDS: MUCINEX 600 MG PO (11:14)
[2024-07-25 11:31] VITALS: BP 120/70; BP 126/67; BP 137/66; PULSE 50; PULSE 51; PULSE 54
--- NOTE | 2024-07-25 11:40 | W.PN.HOSP.TC ---
Today's Communication/Plan
-
See plan
Assessment / Plan
Assessment / Plan
Impression:
Presentation with exertional dyspnea and occasional lightheadedness. Chronic bradycardia
Incidental finding of 8 mm pulmonary nodule at the left lower lobe
Other conditions:
Chronic sinus bradycardia.
SVT by history
Hypertension.
Dyslipidemia
Hypothyroidism.
History of renal cell carcinoma status post partial nephrectomy September 2013 at [facility].
Daily alcohol use
Plan:
Exertional dyspnea with productive cough.
Hard to assess if lightheadedness related to above, although less likely.
Euvolemic with no evidence of CHF.
Afebrile
Reports recently completing empiric course of Augmentin for 5 days with no improvement.
CT scan of the chest on admission negative for pulmonary embolism with 'bilateral atelectasis and groundglass appearance.
Reports improvement since initiation of prednisone on admission.
Add doxycycline to cover atypical pathogens for completeness.
Add mucolytic's
Likely discharge on steroid taper
Pulmonology consultation
Outpatient evaluation for interstitial lung disease
Consider outpatient spirometry
Lightheadedness. Patient reports no vertigo, although occasional lightheadedness possibly associated with exertion
Recent carotid ultrasound with no hemodynamically significant stenosis.
Neurologically with no focal findings.
Hemodynamically stable for
He has chronic bradycardia with now question if this is symptomatic requiring intervention
Echocardiogram pending
Stress test is pending
Hypothyroidism
TSH within normal limits
Continue levothyroxine
Essential hypertension.
Continue lisinopril
Monitor for orthostasis
Gout on allopurinol.
Reports daily alcohol use.
Low risk for alcohol withdrawal.
On thiamine.
Anticipated Discharge: 24 - 48 hours
Subjective/Interval History
-
Date of Service: July 25, 2024
Objective Data
-
Labs:
Laboratory Results
07/25/24
07:20
WBC 8.2
Hgb 15.6
Hct 46.6
Plt Count 152
Sodium 142
Potassium 4.1
Chloride 103
Carbon Dioxide 30
BUN 11
Creatinine 0.8
Glucose 86
Calcium 9.6
Total Bilirubin 1.3
AST 21
ALT 16
Alkaline Phosphatase 43
Vital Signs:
Vital Signs
Temp Pulse Resp BP Pulse Ox
98.1 F 53 18 139/73 96
07/25/24 11:10 07/25/24 11:10 07/25/24 11:10 07/25/24 11:10 07/25/24 11:10
I&O
07/24/24 07/25/24 07/26/24
06:59 06:59 06:59
Intake Total 0 / 0
Output Total 200 / 200 200 / 200
Balance -200 / -200 -200 / -200
Physical Exam
-
General: Well Developed and No Apparent Distress
HEENT: Normocephalic, Atraumatic and Moist Mucous Membranes
Respiratory: Clear to Auscultation
Cardiac: Regular Rhythm and S1/S2; Negative Murmur, Rub or Gallop
GI: Soft, Nontender, Nondistended and Normal Bowel Sounds; Negative Organomegaly
Rectal: Deferred by Provider
Musculoskeletal: No Clubbing, No Cyanosis and No Edema
Skin: Negative Rash
Neuro: Nonfocal/Grossly Intact
[2024-07-25 15:09] VITALS: BP 138/69
--- NOTE | 2024-07-25 15:43 | W.DS.TRANS ---
DC Summary - Nurse Discharge
-
Discharge Instructions:
Discharge Diagnosis/Procedures Exertional dyspnea
Acute bronchitis
LLL pulmonary nodule
Sinus bradycardia
Diet Regular
Instructions:
Stand-Alone Forms:
Changes to Home Medications: Yes
Discharge Medications:
DC Medications w/original date entered in [employer]
atorvastatin 80 mg tablet 80 mg PO HS 08/07/14
lisinopril 10 mg tablet 10 mg PO DAILY 09/04/20
allopurinol 300 mg tablet 300 mg PO HS 07/24/24
diphenhydramine 25 mg-acetaminophen 500 mg tablet (Tylenol PM Extra Strength) 2 tab PO HS 07/24/24
levothyroxine 75 mcg tablet 75 mcg PO DAILY 07/24/24
lorazepam 0.5 mg tablet 0.5 mg PO DAILYPRN PRN before MRI/flight 07/24/24
doxycycline hyclate 100 mg capsule 100 mg PO Q12 #10 caps 07/25/24
guaifenesin 600 mg tablet, extended release 12 hr 600 mg PO Q12 #30 tabs 07/25/24
methylprednisolone 4 mg tablets in a dose pack (Medrol (Vidal)) See Rx Instructions PO .COMPLEX #21 ea 07/25/24
Home Medication Changes
Steroid taper
Doxycycline
Pending Results: No
--- NOTE | 2024-07-25 16:11 | CM ---
Alert awake oriented patient who lives with his Jossie who lives in a 2 story home with 1 step to enter and 13 steps to bed and bathroom. He is independent in driving and in all activities of daily living.He was offered VN he declined
need.[facility] saw pt . Pt declined need for substance abuse counselling.ALLAN letter given explained all questions answered. ALLAN signed on chart.
[place] V[facility] hx / No SNF history
Pharmacy [facility]
PCP Dianelys Rodrigues [facility]
PLAN Home Declined VN
[2024-07-25 19:59] LABS: Hepatitis C Antibody Negative (Negative)
== END 2024-07-25 16:29 | disposition home or self-care (01) ==
LOC: 4 EAST ACU 15:07
PROVIDERS: Clinical Nurse Specialist Family Health; Physician Assistant; ADMITTING PHYSICIAN Hospitalist; ATTENDING PHYSICIAN Internal Medicine; CONSULT PHYSICIAN Internal Medicine Cardiovascular Disease; CONSULT PHYSICIAN Internal Medicine Critical Care Medicine; EMERGENCY PHYSICIAN Student in an Organized Health Care Education/Training Program; FAMILY PHYSICIAN Nurse Practitioner Family
DX: R06.09 Other forms of dyspnea (principal); R91.1 Solitary pulmonary nodule; R00.1 Bradycardia, unspecified; I10 Essential (primary) hypertension; E78.00 Pure hypercholesterolemia, unspecified; E03.9 Hypothyroidism, unspecified; F10.10 Alcohol abuse, uncomplicated; Z85.528 Personal history of other malignant neoplasm of kidney; C02.9 Malignant neoplasm of tongue, unspecified; D45 Polycythemia vera; I25.10 Atherosclerotic heart disease of native coronary artery without angina pectoris; I45.89 Other specified conduction disorders; I47.10 Supraventricular tachycardia, unspecified; I49.5 Sick sinus syndrome; I70.0 Atherosclerosis of aorta; K86.2 Cyst of pancreas; M10.9 Gout, unspecified; Z79.890 Hormone replacement therapy; Z79.899 Other long term (current) drug therapy; Z80.0 Family history of malignant neoplasm of digestive organs; Z82.49 Family history of ischemic heart disease and other diseases of the circulatory system; Z85.810 Personal history of malignant neoplasm of tongue; Z85.818 Personal history of malignant neoplasm of other sites of lip, oral cavity, and pharynx; Z85.89 Personal history of malignant neoplasm of other organs and systems; Z86.0101 Personal history of adenomatous and serrated colon polyps; Z87.891 Personal history of nicotine dependence; Z88.1 Allergy status to other antibiotic agents; Z88.2 Allergy status to sulfonamides; Z90.5 Acquired absence of kidney; Z92.3 Personal history of irradiation
CPT/HCPCS: 93017; 71275; 80053; 80306; 81003; 82010; 82077; 82607; 82746; 82977; 83735; 83880; 84100; 84443; 84484; 85025; 85610; 85730; 86803; 87070; 87205; 87502; 87811; 93005; 93306; 96374; 99285; G0378; Q9967

== ENCOUNTER 2024-11-14 06:20 | Day surgery (SDC) | payer MEDICARE, OTHER, SELFPAY | END 2024-11-14 12:54 | disposition home or self-care (01) | LOC: GI 06:20 | PROVIDERS: ATTENDING PHYSICIAN Internal Medicine Gastroenterology | DX: Z12.11 Encounter for screening for malignant neoplasm of colon (principal); Z86.0100 Personal history of colon polyps, unspecified; K64.8 Other hemorrhoids; K57.30 Diverticulosis of large intestine without perforation or abscess without bleeding; D12.2 Benign neoplasm of ascending colon | CPT/HCPCS: 45380; 88305 ==

== ENCOUNTER 2024-12-07 06:47 | Emergency (ER) | payer MEDICARE, OTHER, SELFPAY ==
[2024-12-07 06:51] VITALS: BP 173/93
--- NOTE | 2024-12-07 07:57 | ED.GENMED ---
History of Present Illness
General
Chief Complaint: Musculo-Skeletal Complaint
Time Seen by Provider: 12/07/24 07:56
History of Present Illness
History of Present Illness:
TIME OF INITIAL ENCOUNTER: 8 AM 8 AM
HPI: As patient stood up from a nap 3 days ago, his right lower extremity was 'asleep' primarily his right ankle rolled and felt a snap. He complains of pain to the left knee with moderate pain at the right ankle. He has seen Dr. Elizalde in the
past. In the past he had a x-ray that was negative.
EXAM:
GENERAL: Well appearing in no distress
CERVICAL SPINE: Good AROM
HEAD: No evidence of craniofacial trauma
EXTREMITIES: Normal active range of motion, no tenderness, there is some mild edema at the right ankle but no bony tenderness, negative Nicolas and negative drawer testing at the left knee with no edema/effusion
NEURO: Excellent strength all extremities, appropriate mental status, normal speech/language other than some dysarthria related to treatment of head neck cancer in the past
NUMBER AND COMPLEXITY OF PROBLEMS ADDRESSED AT THE ENCOUNTER
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
� Acute Exacerbation and/or Progression of Chronic Illness: This is an acute problem
� Differential Diagnosis includes: Left knee injury/internal derangement, meniscal injury/ligamentous injury, ankle fracture/sprain
AMOUNT AND/OR COMPLEXITY OF DATA TO BE REVIEWED AND ANALYZED
� I performed an independent evaluation of and my interpretation is:
EKG:
CT:
X-rays: X-ray of left knee shows no acute abnormality, x-ray of the right ankle shows cortical disruption of both malleoli at the right ankle at the inferior most portions
Laboratory Studies:
Other:
� Review of other/old records: I reviewed records, the patient had a colonoscopy last month
� Clinical information was obtained by an independent historian: None needed
� Prescriptions/Medications Considered but not given:
� Further testing considered but not performed:
RISK OF COMPLICATIONS AND/OR MORBIDITY OR MORTALITY OF PATIENT MANAGEMENT
� Social determinants of health affecting care: Lives at home
� Discussion with other providers:
� Escalation of care including admission/observation vs risk of discharge considered: Although patient has malleoli abnormality of the right ankle, he has no bony tenderness there and I suspect that the findings on x-ray are old.
His main symptom is knee pain to the point that he can barely sleep. Will give short course of narcotic analgesia. Splint/knee immobilizer was given. To follow-up with orthopedics.
ANY OTHER UPDATES:
Past History
Past History
ED Past Medical History: Cancer, HTN, Hypercholesterolemia, Other (Tongue cancer) and Other (Polycythemia)
ED Past Surgical History: Orthopedic and Other (Surgery for his tongue cancer)
Social History
Tobacco: Former smoker
Alcohol: None
Drug: None
Personal:
Living: with family
Phy Exam
Physical Exam
Physical Exam:
See HPI
Course
Orders/Labs/Results
Orders:
Orders
12/07/24 06:57
CR Ankle - Right Min 3 Views * Urgent
Comment:
Reason For Exam: swelling, pain, injury
CR Knee - Left 4 Or More View* Urgent
Comment:
Reason For Exam: pain
12/07/24 08:14
Air Splint Right-Treatment ONCE
Knee Immobilizer Left-Treatmen ONCE
Vital Signs
Initial and Last Documented VS:
Initial Vital Signs
Temp Pulse Resp BP Pulse Ox
36.4 C 57 18 173/93 97
12/07/24 06:51 12/07/24 06:51 12/07/24 06:51 12/07/24 06:51 12/07/24 06:51
Last Documented Vital Signs
Temp Pulse Resp BP Pulse Ox
36.4 C 57 18 173/93 97
12/07/24 06:51 12/07/24 06:51 12/07/24 06:51 12/07/24 06:51 12/07/24 06:51
*Critical Care Note
Total Time (30-74mins, 75-104mins- exclusive of procedures): Not Applicable
ED Attending Note
-
Portions of this chart may have been created with voice recognition software.� Occasional wrong word or��sound alike� substitutions may have occurred due to the inherent limitations of voice recognition software.
Discharge Plan
Departure
Patient Disposition: Home (Routine Discharge)
Date of Disposition: 12/07/24
Time of Disposition: 08:11
Patient with high blood pressure during this ER visit?: Yes
Discharge Problem:
Acute pain of left knee
Instructions: Knee Pain (DC), BLOOD PRESSURE
Prescriptions:
New
oxycodone-acetaminophen [Percocet] 5-325 mg tablet
1 tab PO Q8H PRN (Reason: Pain) Qty: 10 0RF
No Action
atorvastatin 80 MG tablet
80 mg PO HS
lisinopril 10 MG tablet
10 mg PO DAILY
levothyroxine 75 mcg Tablet
75 mcg PO DAILY
lorazepam 0.5 mg Tablet
0.5 mg PO DAILYPRN PRN (Reason: before MRI/flight)
allopurinol 300 mg Tablet
300 mg PO HS
diphenhydramine-acetaminophen [Tylenol PM Extra Strength] 25-500 mg Tablet
2 tab PO HS
doxycycline hyclate 100 mg Capsule
100 mg PO Q12 Qty: 10 0RF
guaifenesin 600 mg Tablet Extended Release 12hr
600 mg PO Q12 Qty: 30 0RF
methylprednisolone [Medrol (Vidal)] 4 mg tablets,dose pack
See Rx Instructions .ROUTE .COMPLEX Qty: 21 0RF
Rx Instructions:
for 6 days
Referrals:
Sen Elizalde MD [Active] - Follow up in 2-3 days
Activity Restrictions/Additional Instructions:
There appears to be fractures at the medial and lateral malleoli of the right ankle however you have no tenderness there so this could be an old injury. I sent a prescription for Percocet to your pharmacy. You can take the knee immobilizer off to
exercise the knee several times a day. Return here if worse or other concerns. I recommend you follow-up with Dr. Elizalde. If you take Percocet I recommend you take something like MiraLAX to help prevent constipation.
Interventions
Interventions:
*Risk Screen - Suicide Last Done: 12/07/24 06:51
*General Assessment Last Done: 12/07/24 06:51
*Neglect/Abuse Screening Last Done: 12/07/24 06:51
Discharge Date and Time
Print Language: SLOVENIAN
== END 2024-12-07 08:34 | disposition home or self-care (01) ==
LOC: EMR 06:47
PROVIDERS: EMERGENCY PHYSICIAN Emergency Medicine; FAMILY PHYSICIAN Nurse Practitioner Family
DX: M25.562 Pain in left knee (principal); M25.571 Pain in right ankle and joints of right foot; E78.00 Pure hypercholesterolemia, unspecified; I10 Essential (primary) hypertension; Z87.891 Personal history of nicotine dependence; Z85.810 Personal history of malignant neoplasm of tongue
CPT/HCPCS: 99283; 73564; 73610

== ENCOUNTER → 2025-01-21 09:36 | Outpatient (REF) | payer MEDICARE, OTHER, SELFPAY | LOC: HWRAD 09:36 | PROVIDERS: ATTENDING PHYSICIAN Nurse Practitioner Adult Health; FAMILY PHYSICIAN Nurse Practitioner Family | DX: R91.1 Solitary pulmonary nodule (principal) | CPT/HCPCS: 71250 ==

== ENCOUNTER → 2025-03-20 13:25 | Outpatient (REF) | payer MEDICARE, OTHER, SELFPAY ==
[2025-03-20 15:49] LABS: Hematocrit 46.6 % (39.0-52.0); Hemoglobin 15.6 g/dL (13.0-18.0); Mean Corp Hgb Conc. 33.5 g/dL (33.0-37.0); Mean Corpuscular Volume 93.0 fL (80.0-94.0); Nucleated Red Blood Cells % 0 % (-); Platelet Count 145 10^3/uL (130-400); Red Cell Dist. Width 13.2 % (11.5-14.5)
[2025-03-20 16:10] LABS: ALT (SGPT) 19 U/L (0-50); AST (SGOT) 22 U/L (17-59); Albumin 4.3 g/dl (3.5-5.0); Alkaline Phosphatase 53 U/L (38-126); Blood Urea Nitrogen 15 mg/dl (9-20); Calcium 9.8 mg/dl (8.4-10.2); Carbon Dioxide 32 mmol/L (22-30); Chloride 104 mmol/L (98-107); Glucose 97 mg/dl (70-99); Potassium 4.8 mmol/L (3.5-5.1); Sodium 141 mmol/L (135-145); Total Protein 6.6 g/dl (6.3-8.2); eGFR > 60.00
== END ==
LOC: HWLAB 13:25
PROVIDERS: ATTENDING PHYSICIAN Nurse Practitioner Adult Health; FAMILY PHYSICIAN Nurse Practitioner Family
DX: C64.1 Malignant neoplasm of right kidney, except renal pelvis (principal)
CPT/HCPCS: 36415; 80053; 85025